=== PATIENT | female | born 1950 | race Caucasian/White ===

== ENCOUNTER 2023-02-10 17:20 | Emergency (ER) | payer OTHER ==
[2023-02-10] MEDS ORDERED: ACETAMINOPHEN 500 MG TABLET (FP) PO ONE (17:46)
[2023-02-10] MEDS ORDERED: ACETAMINOPHEN 500 MG TABLET (FP) ONE (17:51)
[2023-02-10 17:53] VITALS: BP 151/98; PULSE 84; RESP 16; TEMP 98; BMI 31.1
== END 2023-02-10 19:45 | disposition home or self-care (01) ==
LOC: FER 17:20
DX: M25.561 Pain in right knee (principal); R22.41 Localized swelling, mass and lump, right lower limb
CPT/HCPCS: 73562-TC-RT-FY; 93971-TC; 99284-25